=== PATIENT | female | born 1995 | race Asian ===

== ENCOUNTER → 2016-06-18 | Outpatient (CLI) | payer BC | END | disposition home or self-care (01) | LOC: CFH 13:41 | PROVIDERS: ATTEND Family Medicine | DX: N63 Unspecified lump in breast (principal) | CPT/HCPCS: 76642 ==

== ENCOUNTER 2016-07-13 19:22 | Emergency (ER) | payer BC ==
[~2016-07-13] VITALS: Ht 170.2 cm; Wt 63.0 kg
[2016-07-13 19:52] VITALS: BP 137/80
[2016-07-13 20:47] LABS: BLOOD UREA NITROGEN 13 mg/dL (7-18)
== END 2016-07-13 21:22 | disposition home or self-care (01) ==
LOC: ED 21:16
DX: K62.5 Hemorrhage of anus and rectum (principal); K64.8 Other hemorrhoids
CPT/HCPCS: 36415; 80048; 82040; 85025; 99284